=== PATIENT | female | born 2000 | race Caucasian/White ===

== ENCOUNTER 2021-11-16 19:51 | Emergency (ER) | payer SELFPAY ==
[~2021-11-16] VITALS: Ht 147.3 cm; Wt 40.4 kg
[2021-11-16 19:55] VITALS: BP 127/84
[2021-11-16] MEDS ORDERED: DIPH25TA53 PO (20:29)
[2021-11-16] MEDS ORDERED: PRED20TA5 PO (20:29)
[2021-11-16] MEDS ORDERED: predniSONE 20 MG TAB PO ONE (20:30)
[2021-11-16 20:51] VITALS: BP 127/84
== END 2021-11-16 20:52 | disposition home or self-care (01) ==
LOC: MED 19:51
DX: L20.9 Atopic dermatitis, unspecified (principal); Z79.899 Other long term (current) drug therapy
CPT/HCPCS: 99283; J7512